=== PATIENT | female | born 1955 | race Two or more races ===

== ENCOUNTER 2017-07-04 13:33 | Emergency (ER) | payer MEDICARE, MEDICAID ==
[2017-07-04 14:00] VITALS: RESP 24; TEMP 97.4
[2017-07-04] MEDS ORDERED: DIPHENHYDRAMINE 50 MG/ML SOL IM ONE (14:07)
[2017-07-04] MEDS ORDERED: PREDNISONE 20 MG TAB PO ONE (14:08)
[2017-07-04] MEDS ORDERED: DIPHENHYDRAMINE 50 MG/ML SOL ONE (14:11)
[2017-07-04] MEDS ORDERED: PREDNISONE 20 MG TAB ONE (14:11)
[2017-07-04 14:26] LABS: BASOPHILS % (AUTO) 2 % (0-3); EOSINOPHILS % (AUTO) 15 % (0-9); HEMATOCRIT 34 % (35-47); MEAN CORPUSCULAR HGB CONC 33.7 gm/dl (32.0-36.0); MONOCYTES % (AUTO) 4.7 % (0-12); NEUTROPHILS % (AUTO) 61.4 % (37-80)
[2017-07-04 14:32] LABS: CALCIUM 7.6 mg/dl (8.5-10.1); POTASSIUM 3.6 mMol/L (3.5-5.1)
[2017-07-04 14:43] LABS: MEAN CORPUSCULAR VOLUME 112 fL (81-99)
[2017-07-04 14:44] LABS: ANISOCYTOSIS SLIGHT AMT
[2017-07-04 14:59] VITALS: BP 158/88; PULSE 99; O2SAT 99
== END 2017-07-04 14:56 | disposition home or self-care (01) | DRG 603 ==
LOC: ED 13:33
DX: L03.90 Cellulitis, unspecified (principal); L50.0 Allergic urticaria
CPT/HCPCS: 36415; 80048; 85025; 99283; J1200

== ENCOUNTER 2017-07-13 19:44 | Emergency (ER) | payer MEDICARE, OTHER ==
[2017-07-13] MEDS ORDERED: LORAZEPAM 2 MG/ML SOL IV ONE (20:05)
[2017-07-13] MEDS ORDERED: LORAZEPAM 2 MG/ML SOL ONE (20:06)
[2017-07-13] MEDS ORDERED: SODIUM CHLORIDE 0.9% 1000 ML SOL IV SCH (20:15)
[2017-07-13 20:23] LABS: MEAN CORPUSCULAR HGB CONC 32.4 gm/dl (32.0-36.0)
[2017-07-13 20:32] LABS: ALBUMIN 1.7 gm/dl (3.4-5.0); CALCIUM 7.8 mg/dl (8.5-10.1); POTASSIUM 3.3 mMol/L (3.5-5.1)
[2017-07-13 20:50] LABS: APPEARANCE,URINE Clear; BILIRUBIN,URINE 2+ (NEGATIVE); COLOR,URINE Dark yellow; GLUCOSE, URINE (UA) TRACE (NEGATIVE); KETONES,URINE TRACE (NEGATIVE); LEUKOCYTE ESTERASE ,URINE NEGATIVE (NEGATIVE); NITRATE,URINE NEGATIVE (NEGATIVE); OCCULT BLOOD,URINE NEGATIVE (NEG-TRACE); PH,URINE 5.5
[2017-07-13] MEDS ORDERED: POTASSIUM CHLORIDE 2 MEQ/ML SOL IV SCH (21:00)
[2017-07-13 21:06] LABS: ICTOTEST,URINE POSITIVE (NEGATIVE); RBC,URINE NEG (0-3AV/HPF); WBC,URINE 0-1 (0-5AV/HPF)
[2017-07-13 21:07] LABS: AMPHETAMINES NEGATIVE (NEGATIVE); METHADONE NEGATIVE (NEGATIVE); OPIATES(OP13) POSITIVE (NEGATIVE); OXYCODONE(OXY) NEGATIVE (NEGATIVE); PROPOXYPHENE(PPX) NEGATIVE (NEGATIVE); TRICYCLIC ANTIDEPRESSANTS NEGATIVE (NEGATIVE)
[2017-07-13] MEDS ORDERED: POTASSIUM CHLORIDE 2 MEQ/ML SOL IV ONE (21:24)
[2017-07-13] MEDS ORDERED: SODIUM CHLORIDE 0.9% 1000ML 1,000 ML IV ONE (21:30)
[2017-07-13] MEDS ORDERED: SOLUMEDROL 125 MG/2 ML 125 MG/2 ML PDS IV ONE (22:04)
[2017-07-13] MEDS ORDERED: DIPHENHYDRAMINE 50 MG/ML SOL IV ONE (22:04)
[2017-07-13] MEDS ORDERED: DIPHENHYDRAMINE 50 MG/ML SOL ONE (22:16)
[2017-07-13] MEDS ORDERED: SOLUMEDROL 125 MG/2 ML 125 MG/2 ML PDS ONE (22:16)
[2017-07-13] MEDS ORDERED: ALBUTEROL/IPRATROPIUM 1 VIAL SOL INH ONE (23:56)
[2017-07-13] MEDS ORDERED: ALBUTEROL/IPRATROPIUM 1 VIAL SOL ONE (23:56)
[2017-07-14] MEDS ORDERED: LORAZEPAM 2 MG/ML SOL IV ONE ×2 (00:18→01:48)
[2017-07-14 00:20] VITALS: TEMP 98.8
[2017-07-14] MEDS ORDERED: LORAZEPAM 2 MG/ML SOL ONE ×2 (00:20→01:49)
[2017-07-14 00:53] LABS: CALCIUM 7.6 mg/dl (8.5-10.1); GLOM FILT RATE 33 mL/min (>60); MAGNESIUM 1.6 mg/dl (1.8-2.4); POTASSIUM 3.7 mMol/L (3.5-5.1); SODIUM 141 mMol/L (136-145)
[2017-07-14 01:23] VITALS: BP 101/70; PULSE 122; RESP 28; O2SAT 97
== END 2017-07-14 02:21 | disposition short-term general hospital (02) | DRG 948 ==
LOC: ED 19:44
DX: R41.82 Altered mental status, unspecified (principal); R00.0 Tachycardia, unspecified; R40.2412 Glasgow coma scale score 13-15, at arrival to emergency department; R44.3 Hallucinations, unspecified
CPT/HCPCS: 36415; 70450; 80048; 80053; 80305; 80307; 81001; 83735; 84100; 84484; 85027; 87040; 96365; 96366; 96374; 96375; 99285; 99291; J1200; J2060; J2930; J3480; J7620